=== PATIENT | male | born 1980 | race Native Hawaiian/Other Pacific Islander ===

== ENCOUNTER 2018-12-22 11:29 | Emergency (ER) | payer SELFPAY ==
[~2018-12-22] VITALS: Ht 170.2 cm; Wt 72.6 kg
--- NOTE | 2018-12-22 11:42 | ED EENT ---
History of Present Illness General Stated Complaint: NECK SWELLING Source: patient, family, RN notes reviewed Exam Limitations: no limitations History of Present Illness Date Seen by Provider: Dec 22, 2018 Time Seen by Provider: 11:41 Initial Comments Patient presents c/ c/o worsening anterior neck pain and swelling that began yesterday p/noon. Never had before. Not sure if has had a fever. Timing/Duration: yesterday Severity: severe (/10) Location: other (actually submandibular) Prearrival Treatment: over the counter meds Modifying Factors: Improves With Other (unknown) Associated Symptoms: denies symptoms (x/ as noted.) Allergies and Home Medications Allergies Coded Allergies: No Known Drug Allergies (Unverified , 12/22/18) Home Medications Clindamycin HCl 150 Mg Capsule, 300 MG PO QID Prescribed by: RUTHY SEO on 12/22/18 1424 Hydrocodone Bit/Acetaminophen 1 Ea Tablet, 1 EACH PO Q6H Prescribed by: RUTHY SEO on 12/22/18 1424 Patient Home Medication List Home Medication List Reviewed: Yes Review of Systems Review of Systems Constitutional: see HPI Throat: see HPI, pain, swelling All Other Systems Reviewed Negative Unless Noted: Yes (Negative excepted noted.) Physical Exam Vital Signs Vital Signs - First Documented 12/22/18 11:44 Temp 98.9 Pulse 83 Resp 17 B/P (MAP) 171/105 (127) Pulse Ox 98 O2 Delivery Room Air Height, Weight, BMI Height: '" Weight: lbs. oz. kg; BMI Method: General Appearance: WD/WN, moderate distress Mouth/Throat: other (anterior submandibular swelling and tenderness) Cardiovascular: regular rate, rhythm Respiratory: no respiratory distress Neurologic/Psychiatric: no motor/sensory deficits, alert, oriented x 3, depressed affect Skin: warm/dry Progress/Results/Core Measures Results/Orders Lab Results Laboratory Tests Test 12/22/18 12:00 Range/Units White Blood Count 13.1 H 4.3-11.0 10^3/uL Red Blood Count 4.79 4.35-5.85 10^6/uL Hemoglobin 14.6 13.3-17.7 G/DL Hematocrit 41 40-54 % Mean Corpuscular Volume 86 80-99 FL Mean Corpuscular Hemoglobin 30 25-34 PG Mean Corpuscular Hemoglobin Concent 36 32-36 G/DL Red Cell Distribution Width 12.1 10.0-14.5 % Platelet Count 172 130-400 10^3/uL Mean Platelet Volume 11.4 H 7.4-10.4 FL Neutrophils (%) (Auto) 74 42-75 % Lymphocytes (%) (Auto) 17 12-44 % Monocytes (%) (Auto) 6 0-12 % Eosinophils (%) (Auto) 2 0-10 % Basophils (%) (Auto) 0 0-10 % Neutrophils # (Auto) 9.7 H 1.8-7.8 X 10^3 Lymphocytes # (Auto) 2.2 1.0-4.0 X 10^3 Monocytes # (Auto) 0.8 0.0-1.0 X 10^3 Eosinophils # (Auto) 0.3 0.0-0.3 10^3/uL Basophils # (Auto) 0.1 0.0-0.1 10^3/uL Sodium Level 136 135-145 MMOL/L Potassium Level 3.5 L 3.6-5.0 MMOL/L Chloride Level 98 98-107 MMOL/L Carbon Dioxide Level 25 21-32 MMOL/L Anion Gap 13 5-14 MMOL/L Blood Urea Nitrogen 18 7-18 MG/DL Creatinine 0.86 0.60-1.30 MG/DL Estimat Glomerular Filtration Rate > 60 BUN/Creatinine Ratio 21 Glucose Level 127 H 70-105 MG/DL Lactic Acid Level 1.23 0.50-2.00 MMOL/L Calcium Level 8.8 8.5-10.1 MG/DL Corrected Calcium 9.0 8.5-10.1 MG/DL Total Bilirubin 0.5 0.1-1.0 MG/DL Aspartate Amino Transf (AST/SGOT) 52 H 5-34 U/L Alanine Aminotransferase (ALT/SGPT) 143 H 0-55 U/L Alkaline Phosphatase 96 40-136 U/L Total Protein 7.1 6.4-8.2 GM/DL Albumin 3.8 3.2-4.5 GM/DL My Orders Orders - RUTHY SEO DO Ed Iv/Invasive Line Start (12/22/18 11:40) Cbc With Automated Diff (12/22/18 11:40) Comprehensive Metabolic Panel (12/22/18 11:40) Lactic Acid Analyzer (12/22/18 11:40) Blood Culture (12/22/18 11:40) Ct Neck (Soft Tissue) W (12/22/18 12:40) Iohexol Injection (Omnipaque 350 Mg/Ml 1 (12/22/18 13:00) Received Contrast (Hold Metformin- Contr (12/22/18 13:00) Sodium Chloride Flush (Catheter Flush Sy (12/22/18 13:00) Ns (Ivpb) (Sodium Chloride 0.9% Ivpb Bag (12/22/18 13:00) Ketorolac Injection (Toradol Injection) (12/22/18 13:15) Dexamethasone Injection (Decadron Inject (12/22/18 13:45) Clindamycin 900 Mg/50 Ml Ivpb (Cleocin P (12/22/18 13:45) Medications Given in ED Current Medications Medications Dose Ordered Sig/Keshawn Route Start Time Stop Time Status Last Admin Dose Admin Clindamycin Phosphate/Dextrose 50 ml @ 100 mls/hr ONCE ONCE IV 12/22/18 13:45 12/22/18 14:14 DC 12/22/18 14:30 100 MLS/HR Dexamethasone Sodium Phosphate 15 mg ONCE ONCE IV 12/22/18 13:45 12/22/18 13:47 DC 12/22/18 14:20 15 MG Iohexol 75 ml ONCE ONCE IV 12/22/18 13:00 12/22/18 13:01 DC 12/22/18 13:13 75 ML Ketorolac Tromethamine 15 mg ONCE ONCE IVP 12/22/18 13:15 12/22/18 13:16 DC 12/22/18 13:35 15 MG Sodium Chloride 10 ml NEEDED PRN IV 12/22/18 13:00 12/22/18 15:41 DC 12/22/18 13:13 10 ML Sodium Chloride 100 ml ONCE ONCE IV 12/22/18 13:00 12/22/18 13:01 DC 12/22/18 13:12 80 ML Vital Signs/I&O 12/22/18 12/22/18 11:44 15:15 Temp 98.9 98.5 Pulse 83 80 Resp 17 16 B/P (MAP) 171/105 (127) 156/77 (103) Pulse Ox 98 99 O2 Delivery Room Air Room Air Progress Progress Note : Progress Note Pain has improved c/ meds. Diagnostic Imaging Diagonstic Imaging: CT Plain Films/CT/US/NM/MRI: other (neck c/w cellulitis) Departure Impression Primary Impression: Cellulitis of neck Disposition: 01 HOME, SELF-CARE Condition: Stable Departure-Patient Inst. Decision time for Depature: 14:07 Referrals: [facility] [place] Patient Instructions: Cellulitis (Skin Infection), Adult (DC) Add. Discharge Instructions: RECOMMEND 600 mg OF IBUPROFEN EVERY 6 HOURS FOR PAIN AND SWELLING. Scripts Hydrocodone Bit/Acetaminophen (LORTAB 7.5 MG TABLET) 1 Ea Tablet 1 EACH PO Q6H, #14 TAB 0 Refills Prov: RUTHY SEO DO 12/22/18 Clindamycin HCl (Clindamycin HCl) 150 Mg Capsule 300 MG PO QID, #80 CAP 0 Refills Prov: RUTHY SEO DO 12/22/18 RUTHY SEO DO Dec 22, 2018 11:41
[2018-12-22 12:15] LABS: HEMOGLOBIN 14.6 G/DL (13.3-17.7); MEAN CORPUSCULAR HEMOGLOBIN 30 PG (25-34); WHITE BLOOD COUNT 13.1 10^3/uL (4.3-11.0)
[2018-12-22 12:16] LABS: BASOPHILS # (AUTO) 0.1 10^3/uL (0.0-0.1); BASOPHILS % (AUTO) 0 % (0-10); EOSINOPHILS # (AUTO) 0.3 10^3/uL (0.0-0.3); EOSINOPHILS % (AUTO) 2 % (0-10); HEMATOCRIT 41 % (40-54); LYMPHOCYTES # (AUTO) 2.2 X 10^3 (1.0-4.0); LYMPHOCYTES % (AUTO) 17 % (12-44); MEAN CORPUSCULAR HGB CONC 36 G/DL (32-36); MEAN CORPUSCULAR VOLUME 86 FL (80-99); MEAN PLATELET VOLUME 11.4 FL (7.4-10.4); MONOCYTES # (AUTO) 0.8 X 10^3 (0.0-1.0); MONOCYTES % (AUTO) 6 % (0-12); NEUTROPHILS # (AUTO) 9.7 X 10^3 (1.8-7.8); NEUTROPHILS % (AUTO) 74 % (42-75); PLATELET COUNT 172 10^3/uL (130-400); RED CELL DISTRIBUTION WIDTH 12.1 % (10.0-14.5)
[2018-12-22 12:36] LABS: BUN/CREATININE RATIO 21; CARBON DIOXIDE 25 MMOL/L (21-32); CHLORIDE 98 MMOL/L (98-107); CREATININE SERUM 0.86 MG/DL (0.60-1.30); GFR ESTIMATED > 60; POTASSIUM 3.5 MMOL/L (3.6-5.0); SODIUM 136 MMOL/L (135-145)
[2018-12-22 12:37] LABS: ALANINE AMINOTRANSFERASE 143 U/L (0-55); ALBUMIN 3.8 GM/DL (3.2-4.5); ALKALINE PHOSPHATASE 96 U/L (40-136); BILIRUBIN,TOTAL 0.5 MG/DL (0.1-1.0); CALCIUM 8.8 MG/DL (8.5-10.1); GLUCOSE 127 MG/DL (70-105); TOTAL PROTEIN 7.1 GM/DL (6.4-8.2)
[2018-12-22] MEDS ORDERED: HOLD METFORMIN - RECEIVED CONTRAST 20 ML VIAL IV SCH (13:00)
[2018-12-22] MEDS ORDERED: CATHETER FLUSH 10 ML SYR IV PRN (13:00)
[2018-12-22] MEDS ORDERED: NS 100 ML (IVPB) BAG IV ONE (13:00)
[2018-12-22] MEDS ORDERED: IOHEXOL 350 MG/ML 100 ML (OMNIPAQUE 350) VIAL IV ONE (13:00)
[2018-12-22] MEDS ORDERED: KETOROLAC 30 MG/ML VIAL IVP ONE (13:15)
--- NOTE | 2018-12-22 13:26 | Diagnostic Imaging Report ---
PROCEDURE: CT neck soft tissue with contrast. TECHNIQUE: Multiple contiguous axial images were obtained through the neck after the administration of contrast. Auto Exposure Controls were utilized during the CT exam to meet ALARA standards for radiation dose reduction. INDICATION: Neck swelling. COMPARISON: No prior studies are available for comparison. FINDINGS: The visualized intracranial structures are unremarkable. The posterior nasopharynx and oropharynx are unremarkable. The parapharyngeal fat planes are preserved. The epiglottis and larynx are unremarkable. The bilateral submandibular and parotid glands appear to be symmetric. There is edema identified in the subcutaneous tissues of the neck bilaterally. No well-formed fluid collection is seen. There are some mildly prominent lymph nodes in the jugulodigastric and posterior cervical regions bilaterally. IMPRESSION: Subcutaneous edema is identified in the neck soft tissues bilaterally, suggestive of cellulitis. No superficial or deep soft tissue fluid collection or abscess is seen. There is probable reactive lymphadenopathy in the neck. No other significant abnormality is detected. Dictated by: Dictated on workstation # [id number]
[2018-12-22] MEDS ORDERED: DEXAMETHASONE 10 MG/ML (DECADRON) 1 ML VIAL IV ONE (13:45)
[2018-12-22] MEDS ORDERED: CLINDAMYCIN 900 MG/50 ML IVPB 50 ML IV ONE (13:45)
[2018-12-22] MEDS ORDERED: HYDR-34 PO (14:24)
[2018-12-22] MEDS ORDERED: CLIN150C17 PO (14:24)
[2018-12-22 15:15] VITALS: BP 156/77
== END 2018-12-22 15:15 | disposition home or self-care (01) ==
LOC: ER FS 11:32
DX: L03.221 Cellulitis of neck (principal)
CPT/HCPCS: 36415; 70491; 80053; 83605; 85025; 87040; 96365; 96375